=== PATIENT | male | born 1990 | race African-American/Black ===

== ENCOUNTER 2016-12-19 00:50 | Emergency (ER) | payer OTHER ==
[2016-12-19] MEDS ORDERED: ALBUTEROL SULFATE 2.5 MG/3 ML AMPUL.NEB NEB ONE (01:04)
--- NOTE | 2016-12-19 01:15 | ED Physician Documentation ---
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 no other health problems Onset: days ago (few days exaberation) Duration: continues in ED Initiating Event: sports, exercise, environmental allergy. denies: upper respiratory illness, out of meds Associated Symptoms:: trouble breathing, shortness of breath, pressure, tightness. denies: fever, sweating, hurts to breath, productive cough, bloody sputum, chest discomfort Current Asthma Therapy: inhaled MDI Further Comments: yes (no other health problems at present) - ROS CONST: no problems EYES/ENT: denies: eye redness, eye itching CVS: denies: heart racing, palpitations GI/: none. denies: abdominal pain, problems urinating, vomiting, nausea MS/SKIN/LYMPH: denies: ankle swelling, leg pain, rash NEURO/PSYCH: denies: headache, dizziness, light-headedness, anxiety - PAST HX Asthma: occasional attacks Lung Disease: asthma Surgeries/Procedures: none Allergies/Adverse Reactions: Allergies Allergy/AdvReac Type Severity Reaction Status Date / Time No Known Allergies Allergy Verified 12/19/16 01:24 Home Medications: Ambulatory Orders Medication Instructions Recorded Albuterol Sulfate [Ventolin HFN] 1 appful INH PRN PRN 12/19/16 - SOCIAL HX Smoking History: other (occasional THC wrapped in tobacco leafs) Alcohol Use: none (occasional THC wrapped in tobacco leaves) Drug Use: marijuana - FAMILY HX Family History: asthma. denies: emphysema, CAD, PE, DVT - REVIEWED ASSESSMENTS Nursing Assessment Reviewed: Yes Vitals Reviewed: Yes ED Results Lab/Radiology - Radiology Radiology Impressions: cxr=wnl - Orders Orders: ED Orders Category Date Time Status Albuterol Sulfate [Ventolin] Med 12/19/16 01:04 Discontinued 2.5 mg NEB .STK-MED ONE Asthma Physical Exam - EXAM General Appearance: mild distress EENT: eye inspection normal Neck: nml inspection. No: lymphadenopathy Respiratory: speaks full sentences, respiratory distress, decreased air movement , wheezes, rales. No: breath sounds nml, dull on percussion, retractions, splinting, accessory muscle use CVS: reg rate & rhythm, heart sounds normal Abdomen: non-tender, no distention. No: tenderness Skin: color nml, no rash. No: cyanosis, diaphoresis, pallor, ecchymosis Extremities: non-tender, normal range of motion, no evidence of injury Neuro/Psych: oriented x3, neuro intact, mood/affect nml Discharge Clincal Impression: Acute asthma Condition: Good Disposition: 01 HOME, SELF-CARE Decision to Admit: NO Decision Time: 02:32
[2016-12-19] MEDS: ALBUTEROL SULFATE 2.5 MG/3 ML AMPUL.NEB NEB ONE (01:20)
[2016-12-19] MEDS: IPRATROPIUM/ALBUTEROL SULFATE 3 ML AMPUL.NEB NEB ONE (01:30)
[2016-12-19 02:37] VITALS: BP 139/58
--- NOTE | 2016-12-19 14:56 | Diagnostic Imaging Report ---
KANDY GERONIMO [facility] [id number] [address] Report Submission Date: Dec 19, 2016 1:56:13 AM CDT Patient Study Name: DIMPLE BLANTON Date: Dec 19, 2016 1:41:08 AM CDT Modality Type: CR Gender: M Description: CHEST : 92 Institution: [facility] Physician: KANDY GERONIMO Bridge Manager to anterior and lateral chest Clinical history: Cough and asthma Technique: Pa and lateral standing upright radiographs Findings: The lung connelly are hyperinflated with flattening of the hemidiaphragms. There is no mass infiltrate or pleural effusions. Bony thorax is within normal limits. Impression: Hyperinflation No acute infiltrate Electronically signed on Dec 19, 2016 1:56:13 AM CDT by: Stan SNELL
== END 2016-12-19 02:00 | disposition home or self-care (01) ==
LOC: ED 00:50
DX: J45.909 Unspecified asthma, uncomplicated (principal)
CPT/HCPCS: 71020; 87070; 87880; 99283

== ENCOUNTER 2017-02-13 09:27 | Emergency (ER) | payer SELFPAY ==
[2017-02-13] MEDS ORDERED: 0.9 % SODIUM CHLORIDE 1,000 ML IV ONE ×2 (10:08→12:20)
[2017-02-13] MEDS ORDERED: ONDANSETRON HCL/PF 4 MG/ 2ML VIAL IVP ONE (10:08)
[2017-02-13 10:20] LABS: BASOPHILS % 0.5 (0.0-1.5); EOSINOPHILS % 2.3 % (0.0-6.8); MEAN CORPUSCULAR HEMOGLOBIN 30.9 pg (28.0-34.0); MEAN CORPUSCULAR VOLUME 91.2 fl (80.0-100.0); MONOCYTES % 3.4 % (0.0-11.0); NEUTROPHILS # 7.5 # k/uL (1.4-7.7)
[2017-02-13 11:13] LABS: eGFR (African) > 60; eGFR (Non-African) > 60
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
--- NOTE | 2017-02-13 14:18 | Diagnostic Imaging Report ---
LAYLA SHIN (NEENA) - ER [facility] [id number] [facility] [address] [place], [place]. [address] Report Submission Date: Feb 13, 2017 10:50:11 AM FIELD ACCOUNT DIRECTOR Patient Study Name: DIMPLE BLANTON Date: Feb 13, 2017 10:17:31 AM FIELD ACCOUNT DIRECTOR Modality Type: CT\SR Gender: M Description: CT ABD & PELVIS W/O CO : 92 Institution: [facility] Physician: LAYLA SHIN) - ER Examination: CT Abdomen/pelvis History: Abdominal discomfort. Comparison exams: None available Technique: CT Abdomen/pelvis without contrast protocol. Findings: Liver, spleen, adrenal glands, kidneys, pancreas and gallbladder are without irregularity given exam technique. No gallstone. Bilateral calyceal calcifications. Ureters do not appear to be dilated in their course through the abdomen andpelvis. Bladder margin without gross abnormality. Abdominal aorta without aneurysm or peripheral atherosclerotic disease. Cardiac silhouette not enlarged. No pericardial effusion. Bowel without contrast limiting evaluation. No evidence for acute mesenteric inflammation or free air. No abnormal dilation of the small bowel. Stool throughout the large bowel. No radiopaque foreign body identified. Mildly distended stomach. Osseous structures are appropriate for age. Right S1 superior facet fracture - appears old. Lung bases demonstrate, right greater than left, infiltrates. No effusion. Impression: No abnormal large or small bowel dilation. Distended stomach. No radiopaque foreign body identified. Exam was performed without oral contrast limiting sensitivity. Bilateral nephrolithiasis. Right greater than left, lung base infiltrates. No effusion. Electronically signed on Feb 13, 2017 10:50:11 AM FIELD ACCOUNT DIRECTOR by: Cruz SNELL
--- NOTE | 2017-02-13 15:38 | Diagnostic Imaging Report ---
LAYLA SHIN (NEENA) - ER [facility] [id number] [facility] [address] [place], [place]. [address] Report Submission Date: Feb 13, 2017 3:31:43 PM API PRODUCT MANAGER Patient Study Name: DIMPLE BLANTON Date: Feb 13, 2017 2:33:13 PM API PRODUCT MANAGER Modality Type: CT\SR Gender: M Description: CT ABD & PELVIS W/O : 92 Institution: [facility] Physician: LAYLA SHIN) - ER Examination: CT Abdomen/pelvis History: Evaluate for foreign body. Comparison exams: 13 February 2017 Technique: CT Abdomen/pelvis with oral contrast protocol. Findings: Liver, spleen, adrenal glands, kidneys, pancreas and gallbladder are without irregularity given exam technique. No gallstone. Bilateral calyceal calcifications. Ureters do not appear to be dilated in their course through the abdomen and pelvis. Bladder margin without gross abnormality. Abdominal aorta without aneurysm or peripheral atherosclerotic disease. Cardiac silhouette not enlarged. No pericardial effusion. Contrast within the bowel. No evidence for bag shaped foreign body within the large or small bowel. Few loops of small bowel appear to have prominent mucosa. No evidence for acute mesenteric inflammation or free air. No abnormal dilation of the small bowel. Stool throughout the large bowel. Moderately distended stomach. Osseous structures are appropriate for age. Right S1 superior facet fracture - appears old. Lung bases demonstrate, right greater than left, infiltrates. No effusion. Impression: No abnormal large or small bowel dilation. Distended stomach. No radiopaque bag shaped foreign body identified. Correlate with any evaluation of recent stools. Few loops of small bowel appears to have prominent mucosa suggesting enteritis. Bilateral nephrolithiasis. Right greater than left, lung base infiltrates. No effusion. Electronically signed on Feb 13, 2017 3:31:43 PM API PRODUCT MANAGER by: Cruz SNELL
[2017-02-13 15:58] VITALS: BP 140/72
== END 2017-02-13 15:54 | disposition home or self-care (01) ==
LOC: ED 09:27
DX: R10.84 Generalized abdominal pain (principal); F19.90 Other psychoactive substance use, unspecified, uncomplicated
CPT/HCPCS: 74176; 80053; 85025; J2405; J7030; Q9966; 96361; 96374; 99284; S1016

== ENCOUNTER 2017-05-01 22:43 | Emergency (ER) | payer OTHER ==
[2017-05-01] MEDS: ALBUTEROL SULFATE 2.5 MG/3 ML AMPUL.NEB NEB ONE (22:48)
[2017-05-01 23:10] VITALS: BP 120/68
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
== END 2017-05-01 23:05 | disposition home or self-care (01) ==
LOC: ED 22:43
DX: R06.02 Shortness of breath (principal); F19.10 Other psychoactive substance abuse, uncomplicated; F10.10 Alcohol abuse, uncomplicated; F12.10 Cannabis abuse, uncomplicated; F17.210 Nicotine dependence, cigarettes, uncomplicated; Z53.29 Procedure and treatment not carried out because of patient's decision for other reasons
CPT/HCPCS: 94640; 99282

== ENCOUNTER 2017-08-11 18:59 | Emergency (ER) | payer OTHER ==
[2017-08-11] MEDS ORDERED: METOCLOPRAMIDE HCL 5 MG TABLET PO ONE (19:57)
[2017-08-11] MEDS ORDERED: ONDANSETRON HCL/PF 4 MG/ 2ML VIAL IVP ONE (19:58)
[2017-08-11] MEDS ORDERED: HYOSCYAMINE SULFATE 0.125 MG TAB.SUBL SL SCH (20:00)
[2017-08-11] MEDS ORDERED: 0.9 % SODIUM CHLORIDE 1,000 ML IV SCH (20:00)
[2017-08-11 20:10] LABS: BASOPHILS % 0.3 (0.0-1.5); EOSINOPHILS % 1.1 % (0.0-6.8); MEAN CORPUSCULAR HEMOGLOBIN 30.7 pg (28.0-34.0); MEAN CORPUSCULAR VOLUME 92.5 fl (80.0-100.0); MONOCYTES % 6.1 % (0.0-11.0); NEUTROPHILS # 4.3 # k/uL (1.4-7.7)
[2017-08-11] MEDS ORDERED: 0.9 % SODIUM CHLORIDE 1,000 ML IV ONE (20:10)
[2017-08-11 20:18] LABS: eGFR (African) > 60; eGFR (Non-African) > 60
[2017-08-11 23:14] VITALS: BP 127/89
--- NOTE | 2017-08-12 02:20 | ED Physician Documentation ---
Abdominal Pain - HISTORIAN Historian: patient - HPI Stated Complaint: abdominal pain Chief Complaint: Abdominal Pain Additonal Information: started this am. Had similar episode 6 months ago Onset: hours (10) Duration: sudden-onset Timing: still present Context: denies: out of country travel, bad food, recent trauma Severity: moderate Quality: aching Front/Back of Body, Lg (Color): 1 - pain Associated Symptoms: none Exacerbated by: nothing Relieved by: nothing Further Comments: no - ROS CONST: no problems GI/: denies: constipation, black stools, bloody urine, bloody stools, dark urine, problems urinating CVS/RESP: cough (never heard pt. cough once in ER) EYES/ENT: none MS/SKIN/LYMPH: none NEURO/PSYCH: none - SOCIAL HX Smoking History: cigarettes Alcohol Use: occasionally Drug Use: other (experiments with a lot of drugs) - FAMILY HX Family History: no significant history - PAST HX Past History: other (asthma) Ischemic Bowel Risk Factors: none Other History: none Surgeries/Procedures: none Immunizations: referred to PCP Home Medications: Ambulatory Orders Medication Instructions Recorded Albuterol Sulfate [Ventolin HFN] 1 appful INH PRN PRN 12/19/16 Allergies/Adverse Reactions: Allergies Allergy/AdvReac Type Severity Reaction Status Date / Time No Known Allergies Allergy Verified 08/11/17 20:34 - VITAL SIGNS Vital Signs: Vital Signs Temp Pulse Resp BP Pulse Ox 98.5 F 74 16 127/89 99 08/11/17 19:00 08/11/17 22:00 08/11/17 22:00 08/11/17 22:00 08/11/17 22:00 - REVIEWED ASSESSMENTS Nursing Assessment Reviewed: Yes Vitals Reviewed: Yes Progress - Results/Orders Results/Orders: cbc, cmp, ua ordered - Progress Progress: pt. given hyoscyamine 0.25 mg, Zofran 8 mg IVP, Reglan 10 mg p.o. and 1 liter NS IV in ER Critical Care Note - Critical Care Note Total Time (mins): 0 ED Results Lab/Radiology - Lab Results Lab Results: Lab Results 08/11/17 08/11/17 20:02 20:02 WBC 6.30 K/ul K/ul (4.00-12.00) RBC 4.93 M/ul M/ul (3.90-5.20) Hgb 15.1 g/dL g/dL (12.0-18.0) Hct 45.6 % % (37.0-53.0) MCV 92.5 fl fl (80.0-100.0) MCH 30.7 pg pg (28.0-34.0) MCHC 33.2 g/dL g/dL (30.0-36.0) RDW 12.6 % % (11.3-14.3) Plt Count 255 K/mm3 K/mm3 (130-400) Neut % (Auto) 68.6 % % (39.0-79.0) Lymph % (Auto) 22.1 % % (16.0-50.0) Winn % (Auto) 6.1 % % (0.0-11.0) Eos % (Auto) 1.1 % % (0.0-6.8) Baso % (Auto) 0.3 (0.0-1.5) Neut # (Auto) 4.3 # k/uL # k/uL (1.4-7.7) Lymph # (Auto) 1.4 # k/uL # k/uL (0.6-4.0) Winn # (Auto) 0.4 # k/uL # k/uL (0.0-0.9) Eos # (Auto) 0.1 # k/uL # k/uL (0.0-0.6) Baso # (Auto) 0.0 # k/uL # k/uL (0.0-0.5) Reactive Lymphs % 1.8 % % (0.0-5.0) Reactive Lymphs # 0.1 # k/uL # k/uL (0.0-0.8) Sodium 141 mmol/L mmol/L (136-145) Potassium 3.9 mmol/L mmol/L (3.5-5.1) Chloride 102 mmol/L mmol/L (98-107) Carbon Dioxide 29 mmol/L mmol/L (22-30) BUN 13 mg/dL mg/dL (9-20) Creatinine 0.90 mg/dL mg/dL (0.66-1.25) Estimated Creat Clear 160 Est GFR ( Amer) > 60 (60 - ) Est GFR (Non-Af Amer) > 60 (60 - ) Glucose 106 mg/dL mg/dL (74-106) Calcium 9.6 mg/dL mg/dL (8.4-10.2) Total Bilirubin 1.6 mg/dL H mg/dL (0.2-1.3) AST 143 U/L H U/L (15-46) ALT 447 U/L H U/L (13-69) Alkaline Phosphatase 54 U/L U/L (38-126) Total Protein 8.3 g/dL H g/dL (6.3-8.2) Albumin 4.5 g/dL g/dL (3.5-5.0) - Radiology Radiology Impressions: pt. refused suggested CT scan of abd. - Orders Orders: ED Orders Category Date Time Status Place IV Lock 1T Care 08/11/17 20:01 Active CBC/PLATELET/DIFF Routine Lab 08/11/17 20:02 Completed CMP Routine Lab 08/11/17 20:02 Completed 0.9 % Sodium Chloride [Normal Saline] 1,000 ml Med 08/11/17 20:00 Discontinued IV .Q1H 0.9 % Sodium Chloride [Normal Saline] 1,000 ml Med 08/11/17 20:10 Discontinued IV .STK-MED Hyoscyamine Sulfate [Oscimin Sl] Med 08/11/17 20:00 Discontinued 0.25 mg SL 1T Metoclopramide HCl [Reglan] Med 08/11/17 19:57 Discontinued 10 mg PO NOW ONE Ondansetron HCl/Pf [Zofran 4 mg/2 ml] Med 08/11/17 19:58 Discontinued 8 mg IVP NOW ONE Abdominal Pain Physical Exam - Physical Exam General Appearance: alert, mild distress EENT: eye inspection normal, ENT inspection normal, pharynx normal, no signs of dehydration, FILIPE, no nystagmus, TM's nml NECK: normal inspection, thyroid normal, supple RESPIRATORY: no resp distress, chest non-tender, breath sounds normal CVS: reg rate & rhythm, heart sounds normal, equal pulses, no murmur ABDOMEN: soft, no organomegaly, normal bowel sounds, no abdominal bruit, no distension, tenderness (mild, generalized) BACK: normal inspection, no CVA tenderness SKIN: warm/dry, normal color EXTREMITIES: non-tender, normal range of motion, no evidence of injury, no edema NEURO: oriented X3, CN's nml as tested, motor nml, sensation nml, mood/affect nml, cognition normal Vital Signs: Vital Signs Temp Pulse Resp BP Pulse Ox 98.5 F 74 16 127/89 99 08/11/17 19:00 08/11/17 22:00 08/11/17 22:00 08/11/17 22:00 08/11/17 22:00 Discharge Clincal Impression: Abdominal pain Qualifiers: Abdominal location: generalized Qualified Code(s): R10.84 - Generalized abdominal pain Referrals: Primary Doctor,No [Primary Care Provider] - 2 Days Comments: Pt. was to be given list of local physicians and an outpatient US of gallbladder and liver when he just left the ER. Condition: Stable Disposition: 01 HOME, SELF-CARE Decision to Admit: NO Decision Time: 22:00
== END 2017-08-11 22:00 | disposition home or self-care (01) ==
LOC: ED 18:59
DX: R10.84 Generalized abdominal pain (principal)
CPT/HCPCS: 80053; 85025; J2405; 96365; 96375; 99284; S1016